=== PATIENT | male | born 1955 | race Caucasian/White ===

== ENCOUNTER → 2019-07-02 | Outpatient (CLI) | payer MEDICARE, OTHER ==
[2019-07-02 13:50] LABS: Basophils # (A) 0.1 k/uL (0-0.2); Basophils % (A) 1 %; Eosinophils # (A) 0.2 k/uL (0-0.7); Eosinophils % (A) 3 %; HCT 45.4 % (39.0-53.0); HGB 14.7 gm/dL (13.0-17.5); Lymphocytes # (A) 2.7 k/uL (1.0-4.8); Lymphocytes % (A) 32 %; MCH 30.5 pg (25.0-35.0); MCHC 32.3 g/dL (31.0-37.0); MCV 94.5 fL (80.0-100.0); Mean Platelet Volume 7.6; Monocytes # (A) 0.6 k/uL (0-1.0); Monocytes % (A) 7 %; Neutrophils # (A) 4.6 k/uL (1.3-7.7); Neutrophils % (A) 55 %; Platelet Count 294 k/uL (150-450); RBC 4.81 m/uL (4.30-5.90); RDW 12.1 % (11.5-15.5); WBC 8.5 k/uL (3.8-10.6)
[2019-07-02 13:59] LABS: ALT 35 U/L (4-49); AST 25 U/L (17-59); African American GFR (CKD) >90 (>60 ml/min/1.73 sqM); Albumin 4.6 g/dL (3.5-5.0); Alkaline Phosphatase 77 U/L (38-126); Anion Gap 12 mmol/L; Blood Urea Nitrogen 17 mg/dL (9-20); Calcium 9.7 mg/dL (8.4-10.2); Carbon Dioxide 24 mmol/L (22-30); Chloride 97 mmol/L (98-107); Glucose 127 mg/dL (74-99); Non-African American GFR(CKD) >90 (>60 ml/min/1.73 sqM); Potassium 4.8 mmol/L (3.5-5.1); Sodium 133 mmol/L (137-145); Total Bilirubin 0.8 mg/dL (0.2-1.3); Total Protein 7.7 g/dL (6.3-8.2)
== END | disposition home or self-care (01) ==
LOC: LABWHC1 12:45
PROVIDERS: ATTEND Internal Medicine Interventional Cardiology
DX: Z01.812 Encounter for preprocedural laboratory examination (principal); I20.9 Angina pectoris, unspecified
CPT/HCPCS: 80053; 85025; 87635

== ENCOUNTER → 2019-07-02 | Outpatient (CLI) | payer MEDICARE, OTHER ==
[2019-07-02 19:40] LABS: Hemoglobin A1C 7.4 % (4.0-6.0)
[2019-07-02 19:53] LABS: Chol/HDL Ratio 3.9; LDL Cholesterol,Calculated 118.6 mg/dL (0.0-131.0); VLDL Calculation 26.4 mg/dL (5.00-40.00)
[2019-07-03 00:55] LABS: Microalbumin Creatinine Ratio <30 mg/g Creat (0-30); Urine Creatinine 47.2 mg/dL
== END | disposition home or self-care (01) ==
LOC: LABWHC1 12:51
PROVIDERS: ATTEND Pediatrics
DX: E78.5 Hyperlipidemia, unspecified (principal); E11.65 Type 2 diabetes mellitus with hyperglycemia; Z12.5 Encounter for screening for malignant neoplasm of prostate
CPT/HCPCS: 80061; 82043; 82570; 83036; 36415; G0103

== ENCOUNTER 2019-07-06 06:15 | Day surgery (SDC) | payer MEDICARE, OTHER ==
[2019-07-01 10:19] VITALS: BMI 26.4
--- NOTE | 2019-07-02 14:32 | HP ---
HISTORY AND PHYSICAL This is a 64-year-old gentleman with history of hypertension, type 2 diabetes, and orthostatic hypotension with chest tightness and pressure. He had a Lexiscan stress test that revealed inferior wall fixed defect with mild hypokinesia. There was also some question of reversibility. Given this, he was advised coronary angiography. He has symptoms, risk factors and abnormal stress test. He has been started on metoprolol, aspirin, and atorvastatin. Advised cardiac cath and based on findings, intervention is necessary. Risks, benefits, options and rationale were explained. He understands all details and wished to proceed with the procedure. PAST MEDICAL HISTORY: 1. Type 2 diabetes. 2. Hypertension. 3. Hyperlipidemia. 4. Abnormal stress test. MEDICATIONS: At home include aspirin 81 mg daily, atorvastatin 20 mg daily, metformin 500 mg b.i.d., metoprolol tartrate 12.5 mg b.i.d. ALLERGIES: No known drug allergies. PHYSICAL EXAMINATION: On examination, blood pressure was 110/64, pulse rate is about 86 per minute. HEENT: Unremarkable, fundus was not examined by me. Neck is supple. No JVD. I do not hear a carotid bruit. There is no thyromegaly. Heart exam reveals S1, S2 heard normally. No rub, murmur or gallop. Lungs are clear. Abdomen is soft, nontender. Lower extremities reveal normal pulses. No edema. Central nervous system is normal. IMPRESSION: 1. Abnormal stress test with symptoms suggestive of angina. 2. Hypertension. 3. Hyperlipidemia. 4. Type 2 diabetes mellitus. RECOMMENDATION: I am recommending coronary angiography based on findings, PCI if indicated. Right radial approach was suggested. Patient understands the rationale, risks, benefits, options and wishes to proceed. MMODL / IJN: [id number] /
[~2019-07-06 06:15] MED LIST: ALPRAZolam 0.25 MG TAB PO PRN; ALPRAZolam 0.5 MG TAB PO PRN; NITROGLYCERIN SL TABS 0.4 MG TAB SUBLINGUAL PRN; SODIUM CHLORIDE 0.9% 1,000 ML in EMPTY BAG 1 BAG IV ONE
[2019-07-06 06:55] LABS: Glucose,Whole Blood 162 mg/dL (75-99)
[2019-07-06] MEDS ORDERED: SODIUM CHLORIDE 0.9% 1,000 ML IV ONE (06:58)
[2019-07-06] MEDS ORDERED: ATORVASTATIN 80 MG TAB PO ONE (07:00)
[2019-07-06] MEDS ORDERED: ASPIRIN 325 MG TAB PO ONE (07:00)
[2019-07-06] MEDS ORDERED: MIDAZOLAM 2 MG/2 ML VIAL IV ONE (07:42)
[2019-07-06] MEDS ORDERED: LIDOCAINE 1% INJ 10MG/ML (20 ML MDV) SQ ONE (07:43)
[2019-07-06] MEDS ORDERED: HEPARIN SODIUM 1,000 UN/ML (10ML VL) IV ONE (07:45)
[2019-07-06] MEDS ORDERED: VERAPAMIL SYRINGE (5 MG/10 ML) INTRAARTER ONE (07:45)
[2019-07-06] MEDS: VERAPAMIL SYRINGE (5 MG/10 ML) INTRAARTER ONE ×2 (07:46→08:43)
[2019-07-06] MEDS: HYDROmorphone 1 MG/ML 1 ML SYRINGE IVP ONE ×2 (07:52→08:41)
[2019-07-06] MEDS ORDERED: IOPAMIDOL-370 100ML BTL INJ ONE ×3 (08:06→08:43)
[2019-07-06] MEDS ORDERED: BIVALIRUDIN BOLUS 250 MG/50 ML IV ONE (08:07)
[2019-07-06] MEDS ORDERED: BIVALIRUDIN 250 MG in SODIUM CHLORIDE 0.9% 50 ML IV ONE (08:08)
[2019-07-06] MEDS ORDERED: niCARdipine Syringe (1,000 mcg/10 mL) INTRACORON ONE (08:37)
[2019-07-06] MEDS ORDERED: NITROGLYCERIN 1000MCG/10ML SYRINGE INTRACORON ONE (08:39)
[2019-07-06] MEDS ORDERED: TICAGRELOR 90 MG TAB PO ONE (08:50)
[2019-07-06] MEDS ORDERED: NITROGLYCERIN SL TABS 0.4 MG TAB SUBLINGUAL PRN (08:58)
[2019-07-06] MEDS ORDERED: ZOLPIDEM 5 MG TAB PO PRN (08:58)
[2019-07-06] MEDS ORDERED: ATROPINE SULFATE 0.1 MG/ML 10ML SYRINGE IV PRN (08:58)
[2019-07-06] MEDS ORDERED: RX INFO: IV CONTRAST WAS GIVEN 1 EACH MISC MISCELLANE PRN (08:58)
[2019-07-06] MEDS ORDERED: MAG HYDROX/AL HYDROX/SIMETH 30 ML CUP PO PRN (08:58)
[2019-07-06] MEDS ORDERED: ACETAMINOPHEN TAB 325 MG TAB ONE (09:43)
[2019-07-06] MEDS ORDERED: HYDROmorphone 1 MG/ML 1 ML SYRINGE ONE (15:28)
[2019-07-06] MEDS: HYDROmorphone 0.5 MG/0.5 ML SYRINGE IVP PRN ×2 (15:50→22:20)
[2019-07-06] MEDS: ASPIRIN 81 MG PO SCH (16:57)
[2019-07-06 16:58] LABS: Glucose,Whole Blood 119 mg/dL (75-99)
[2019-07-06 17:28] LABS: Glucose,Whole Blood 135 mg/dL (75-99)
[2019-07-06 20:43] LABS: Glucose,Whole Blood 123 mg/dL (75-99)
[2019-07-06] MEDS ORDERED: LISINOPRIL 10 MG TAB PO SCH (21:00)
[2019-07-06] MEDS ORDERED: ATORVASTATIN 80 MG TAB PO SCH (21:00)
[2019-07-06] MEDS: glipiZIDE 5 MG TAB PO SCH (21:10)
[2019-07-06] MEDS: METOPROLOL TARTRATE 25 MG TAB PO SCH (21:11)
[2019-07-06] MEDS: TICAGRELOR 90 MG TAB PO SCH (21:12)
[2019-07-06] MEDS: SODIUM CHLORIDE 0.9% 1,000 ML IV SCH (21:15)
[2019-07-07] MEDS: SODIUM CHLORIDE 0.9% 1,000 ML IV SCH (04:03)
[2019-07-07] MEDS: HYDROmorphone 0.5 MG/0.5 ML SYRINGE IVP PRN (04:22)
[2019-07-07 04:33] VITALS: RESP 16
[2019-07-07 05:45] LABS: Glucose,Whole Blood 131 mg/dL (75-99)
[2019-07-07 07:46] LABS: Basophils % (A) 0 %; Eosinophils # (A) 0.2 k/uL (0-0.7); Eosinophils % (A) 3 %; HCT 39.9 % (39.0-53.0); Lymphocytes # (A) 2.1 k/uL (1.0-4.8); Lymphocytes % (A) 24 %; MCH 30.5 pg (25.0-35.0); MCHC 32.5 g/dL (31.0-37.0); MCV 93.6 fL (80.0-100.0); Mean Platelet Volume 7.3; Monocytes # (A) 0.6 k/uL (0-1.0); Monocytes % (A) 7 %; Neutrophils # (A) 5.6 k/uL (1.3-7.7); Neutrophils % (A) 64 %; Platelet Count 243 k/uL (150-450); RBC 4.26 m/uL (4.30-5.90); RDW 12.1 % (11.5-15.5); WBC 8.7 k/uL (3.8-10.6)
[2019-07-07 08:01] LABS: African American GFR (CKD) >90 (>60 ml/min/1.73 sqM); Anion Gap 7 mmol/L; Blood Urea Nitrogen 12 mg/dL (9-20); Calcium 8.9 mg/dL (8.4-10.2); Carbon Dioxide 24 mmol/L (22-30); Chloride 102 mmol/L (98-107); Glucose 111 mg/dL (74-99); Non-African American GFR(CKD) >90 (>60 ml/min/1.73 sqM); Potassium 4.4 mmol/L (3.5-5.1); Sodium 133 mmol/L (137-145)
[2019-07-07 08:16] VITALS: BP 114/61; PULSE 66; TEMP 97.5
[2019-07-07] MEDS: METOPROLOL TARTRATE 25 MG TAB PO SCH (08:18)
[2019-07-07] MEDS: ASPIRIN 81 MG PO SCH (08:18)
[2019-07-07] MEDS: glipiZIDE 5 MG TAB PO SCH (08:18)
[2019-07-07] MEDS: TICAGRELOR 90 MG TAB PO SCH (08:19)
--- NOTE | 2019-07-07 09:56 | CC ---
CARDIAC CATHETERIZATION REPORT PROCEDURE: Left heart catheterization, coronary angiography and PCI of RCA with a drug-eluting stents. PERFORMED BY: Dr. Isrrael Barajas. Moderate conscious sedation time was 66 minutes. Patient was administered Versed and Dilaudid. Oxygen saturation, hemodynamics and EKG were monitored closely. PROCEDURES PERFORMED: 1. Left heart catheterization and coronary angiography. 2. PTCA and stenting of a complex proximal super dominant RCA with 3 drug-eluting stents. CLINICAL INFORMATION: Mr. John Diallo is a 64-year-old gentleman history of diabetes, hypertension, hyperlipidemia, and exertional chest tightness and shortness of breath with a positive stress test with inferior wall reversible defect and hypokinesia on stress suggestive of ischemia in the RCA distribution. He was advised cardiac catheterization after due discussion regarding risks, benefits, and options. PROCEDURE NOTE: Under local anesthesia and strict aseptic precautions, a 6-Spanish introducer was placed in the right radial artery. Using a JR4 and JL3.5 catheters, I performed selective coronary angiography and the same right catheter was used to check LV pressure but LV gram was not performed. I then proceeded to perform PCI of RCA in the same setting. Following the procedure, the sheath was taken out and TR band applied as per protocol. The saturation of the fingers of the right hand of about 92%. Patient tolerated the procedure well. CARDIAC CATHETERIZATION FINDINGS: The left ventricular end-diastolic pressure was about 8-10 mmHg without any gradient across the aortic valve. CORONARY ANGIOGRAPHY FINDINGS: LEFT MAIN CORONARY ARTERY: Long vessel. No significant disease. Mild calcification, bifurcates into LAD and circumflex. LEFT ANTERIOR DESCENDING CORONARY ARTERY: Good caliber vessel. Moderate calcification extends along the anterior wall. In the proximal 1/3, there is a smooth 30% to 35% narrowing and then this tortuosity, gives of diagonal and septal branches, runs all the way to the apex. The entire LAD has mild to moderate calcification, mild diffuse disease with stenosis of anywhere from 20%-40% percent but no critical narrowing is noted. LEFT POSTERIOR CIRCUMFLEX CORONARY ARTERY: Technically a nondominant vessel, very tortuous, moderate calcification, gives off 2 obtuse marginal branches that run laterally, and these have about 30% to 40% mild diffuse narrowing, but no critical stenosis. RIGHT CORONARY ARTERY: Technically this is a very dominant vessel in the proximal portion. The ostium appears to be free of significant disease and the proximal portion, there is a very long area of severe disease with calcification and eccentric stenosis of 80%-90% is noted after which the caliber improves. The vessel distally bifurcates into a large PDA and PLV, both of which have minor diffuse irregularities but no other significant disease is noted. The entire vessel has mild to moderate calcification but the proximal portion has eccentric 85%-90% narrowing. LEFT VENTRICULOGRAM: Left ventriculogram was not performed. The left end-diastolic pressure was 8-10 mmHg without any gradient across the aortic valve. FINAL IMPRESSION: This patient has a superdominant right coronary with 80%-90% proximal stenosis, moderate calcification. Left main circumflex and LAD have mild to moderate diffuse irregularities. No significant disease in the left main. LAD and circumflex have anywhere from 20%-40% percent mild irregularities, but no critical stenosis. Filling pressures are acceptable. No gradient across the aortic valve. RECOMMENDATIONS: Recommend PCI of RCA and proceeded to perform this in the same setting. PCI PROCEDURE DETAILS: I used a standard right Jhoana guide catheter to cannulate the right coronary artery. A run-through wire was used to cross the lesion. A 3.25 caliber 15 mm NC Trek balloon was used to pre-dilate the lesion at 12 atmospheres. I then deployed a 23 mm long 4.0 caliber Xience stent. A good result was achieved, but then I noticed that the ostium of the RCA where the guide catheter was pointing inferiorly had dissection and the dissection started from the ostium and extended into the proximal portion of the RCA. Unfortunately, I lost the guidewire support and I had to recannulate the RCA with the same guide catheter and rewire it into the true lumen, a run-through wire. I then went ahead and stented the ostium of the RCA with a 4.0 caliber 12 mm Xience stent and another 4.0 caliber Xience stent was telescoped between the initially placed 23 mm long stent and the ostial stent of 12 mm. This was also a 12 mm 4.0 caliber Xience stent. Excellent angiographic result was achieved. Patient had no chest pain. He had mild EKG changes, which resolved. He remained hemodynamically stable. After observation for a while. Excellent angiographic result was achieved. I could still see the dissection, but there was no flow and the dissection was very well tacked up. The sheath was then taken out and patient was sent to the room in a stable condition. He will be observed for 24 hours and if he remains stable. I expect to discharge him tomorrow. The patient had expected to discharge him the day after the procedure. The patient received Angiomax bolus and infusion. He also received Brilinta 180 mg orally. Results were discussed with the patient and his [id number]. He will be discharged 24 hours after the procedure, if he remains stable. MMODL / IJN: [id number] /
--- NOTE | 2019-07-07 11:53 | DS ---
DISCHARGE SUMMARY DATE OF ADMISSION: 07/06/2019. DATE OF DISCHARGE: 07/07/2019. DIAGNOSES: 1. Unstable angina with a positive stress test. 2. Type 2 diabetes. 3. Hypertension. 4. Hyperlipidemia. Mr. Diallo was brought in because of an abnormal stress test. Cardiac cath was performed from right radial approach. Proximal RCA lesion was noted. This was stented with a drug-eluting stent and then was a dissection in the ostium of the RCA. This was tacked up with 2 additional stents. Excellent result was achieved. Postprocedure course was uneventful. He is ambulating without symptoms. EKG is unremarkable. Labs were reviewed. Cath site is clean and dry. The patient is asymptomatic. I reviewed all his medications. He will be discharged on lisinopril 5 mg at bedtime, metoprolol tartrate 25 mg b.i.d., Brilinta 90 mg b.i.d., aspirin 81 mg daily, Lipitor 80 mg daily. This is in addition to glipizide and metformin, which he is already taking. Metformin will be resumed tomorrow. He will be discharged today and I will see him in the office at 9 am on Friday. Discharge instructions regarding activity diet and medications were given. MMODL / IJN: [id number] /
[2019-07-07] MEDS ORDERED: LISINOPRIL 5 MG TAB PO SCH (21:00)
== END 2019-07-07 10:32 | disposition home or self-care (01) ==
LOC: CATHCVL 06:15 → 3SCARD 08:47 → CATHCVL 07-07 10:32
PROVIDERS: ATTEND Internal Medicine Interventional Cardiology
DX: I25.110 Atherosclerotic heart disease of native coronary artery with unstable angina pectoris (principal); I10 Essential (primary) hypertension; E78.5 Hyperlipidemia, unspecified; Z79.82 Long term (current) use of aspirin; Z79.84 Long term (current) use of oral hypoglycemic drugs; Z79.899 Other long term (current) drug therapy
CPT/HCPCS: 93458; 80048; 85025; C9600; C1887; C1725; C1769 ×2; C1874; C1894; J2250; J2001; J1644; J1170 ×3; J0583; Q9967

== ENCOUNTER → 2022-03-08 | Day surgery (SDC) | payer MEDICARE, OTHER ==
[~2022-03-08] MED LIST changes: -ALPRAZolam 0.25 MG TAB PO PRN; -ALPRAZolam 0.5 MG TAB PO PRN; +LACTATED RINGERS 1,000 ML IV SCH; +LIDOCAINE 1% (10MG/ML) FOR IV START INTRADERMA PRN; +LIDOCAINE 2% INJ 20 MG/ML (2 ML VIAL) ONE; -NITROGLYCERIN SL TABS 0.4 MG TAB SUBLINGUAL PRN; +PROPOFOL 10 MG/ML 20 ML VIAL IV ONE; -SODIUM CHLORIDE 0.9% 1,000 ML in EMPTY BAG 1 BAG IV ONE
[2022-03-08 08:52] VITALS: RESP 16; TEMP 97.3
[2022-03-08 08:55] LABS: Glucose,Whole Blood 179 mg/dL (70-110)
--- NOTE | 2022-03-08 10:55 | P.PCN ---
Date of Procedure: 03/08/22 Procedure(s) Performed: BRIEF HISTORY: Patient is a 66-year-old pleasant white male scheduled for an elective colonoscopy as a part of screening for colon cancer/positive cologuard. PROCEDURE PERFORMED: Colonoscopy. PREOPERATIVE DIAGNOSIS: Screening for colon cancer/positive cologuard. IV sedation per Anesthesia. PROCEDURE: After informed consent was obtained, the patient, was brought into the endoscopy unit. IV sedation was administered by Anesthesia under continuous monitoring. Digital rectal examination was normal. Initially the Olympus CF-160 flexible video colonoscope was then inserted in the rectum, gradually advanced into the cecum without any difficulty. Careful examination was performed as the scope was gradually being withdrawn. Ileocecal valve and the appendiceal orifice were visualized and appeared normal. Prep was excellent. Mucosa of the cecum, ascending colon, transverse colon, descending colon, sigmoid colon, and rectum appeared normal. At her sigmoid diverticulosis Retroflexion was performed in the rectum and no lesions were seen. The patient tolerated the procedure well. IMPRESSION: Normal-appearing colon from rectum to cecum no evidence of colorectal neoplasia Scattered sigmoid diverticulosis . RECOMMENDATIONS: Findings of this examination were discussed with the patientas well as his family. He was advised to have a repeat screening colonoscopy in 10 years.].
[2022-03-08 11:47] VITALS: BP 143/76; PULSE 66
== END ==
LOC: ORWHC2ENDO 08:17
PROVIDERS: ATTEND Internal Medicine Gastroenterology
DX: K57.30 Diverticulosis of large intestine without perforation or abscess without bleeding (principal); I10 Essential (primary) hypertension; E78.5 Hyperlipidemia, unspecified; F17.200 Nicotine dependence, unspecified, uncomplicated; F12.90 Cannabis use, unspecified, uncomplicated; E11.9 Type 2 diabetes mellitus without complications; I25.10 Atherosclerotic heart disease of native coronary artery without angina pectoris; Z79.84 Long term (current) use of oral hypoglycemic drugs; Z79.82 Long term (current) use of aspirin; Z79.02 Long term (current) use of antithrombotics/antiplatelets; Z79.899 Other long term (current) drug therapy; Z95.5 Presence of coronary angioplasty implant and graft; Z88.2 Allergy status to sulfonamides
CPT/HCPCS: 45378; J2704; J2001